=== PATIENT | male | born 1990 | race Caucasian/White ===

== ENCOUNTER → 2018-02-20 10:54 | Outpatient (CLI) | payer OTHER, SELFPAY ==
--- NOTE | 2018-02-20 10:54 | DT_ITS ---
This patient was seen during an EMR downtime February 15, 2018 - February 22, 2018. This patient may have a combination of paper and electronic documentation or all paper documentation. All documentation is viewable within the e-chart portion of [facility] for each patient visit.
[2018-02-20 11:46] LABS: Erythrocyte Sedimentation Rate 5 mm/hr (0-15)
[2018-02-20 12:30] LABS: Thyroid Stim Hormone (TSH) 0.95 uIU/mL (0.358-3.74)
== END ==
DX: K62.5 Hemorrhage of anus and rectum (principal); K21.9 Gastro-esophageal reflux disease without esophagitis; R63.4 Abnormal weight loss; R19.7 Diarrhea, unspecified; R10.84 Generalized abdominal pain; R11.2 Nausea with vomiting, unspecified
CPT/HCPCS: 36415; 83516; 84443; 85652; 86140

== ENCOUNTER → 2018-03-06 10:15 | Outpatient (CLI) | payer OTHER, SELFPAY ==
[2018-03-11 16:20] LABS: Calprotectin, Stool 19 ug/g (0-120)
== END ==
PROVIDERS: Visit Provider Internal Medicine Gastroenterology
DX: R63.4 Abnormal weight loss (principal)
CPT/HCPCS: 83993